=== PATIENT | male | born 1930 | race Caucasian/White ===

== ENCOUNTER 2018-11-01 08:40 | Emergency (ER) | payer MEDICARE ==
[2018-11-01] MEDS ORDERED: ACETAMINOPHEN 325 MG TABLET PO STA (09:58)
--- NOTE | 2018-11-01 10:01 | ED Physician Documentation ---
PD HPI URI - Stated complaint Stated Complaint: CONGESTION/COUGH - Chief complaint Chief Complaint: Heent - History obtained from History obtained from: Patient - History of Present Illness Timing - onset: How many weeks ago (1) Timing details: Still present Associated symptoms: Nasal congestion, Productive cough - Additional information Additional information: The patient is an 88-year-old male who presents with sinus drainage and productive cough of one weeks duration. He denies fever, chest pain or shortn ess of breath, headache, or myalgias. He denies history of similar symptoms this bad in the past. He lives alone. Review of Systems Constitutional: denies: Fever, Myalgias Eyes: denies: Irritation Ears: denies: Tinnitus/ringing Nose: reports: Congestion Throat: denies: Sore throat Cardiac: denies: Chest pain / pressure Respiratory: reports: Cough. denies: Dyspnea GI: denies: Abdominal Pain, Nausea, Vomiting : denies: Dysuria Skin: denies: Rash Musculoskeletal: denies: Back pain Neurologic: denies: Headache PD PAST MEDICAL HISTORY - Past Medical History Past Medical History: Yes Cardiovascular: High cholesterol Endocrine/Autoimmune: None - Past Surgical History Past Surgical History: Yes Ortho: Hip replacement - Present Medications Home Medications: Ambulatory Orders Medication Instructions Recorded Confirmed Benzonatate [Tessalon Perle] 100 - 200 mg PO TID PRN #14 capsule 11/01/18 Pravastatin Sodium [Pravachol] 20 mg PO BID 11/01/18 11/01/18 - Allergies Allergies/Adverse Reactions: Allergies Allergy/AdvReac Type Severity Reaction Status Date / Time No Known Drug Allergies Allergy Verified 11/01/18 08:59 - Living Situation Living Situation: reports: Alone - Social History Does the pt smoke?: No Smoking Status: Never smoker - Immunizations Immunizations are current?: Yes PD ED PE NORMAL - Vitals Vital signs reviewed: Yes (normal) - General General: Alert and oriented X 3, Well developed/nourished - HEENT HEENT: Atraumatic, Moist mucous membranes, Pharynx benign, Other (Hearing aids) - Neck Neck: No JVD - Cardiac Cardiac: RRR, No murmur - Respiratory Respiratory: No respiratory distress, Clear bilaterally, Other (Loose sounding cough.) - Abdomen Abdomen: Soft, Non tender - Back Back: No CVA TTP - Derm Derm: No rash - Extremities Extremities: No edema, No calf tenderness / cord - Neuro Neuro: Alert and oriented X 3, No motor deficit, Normal speech Results - Vitals Vitals: Vital Signs - 24 hr 11/01/18 08:56 Temperature 36.1 C L Heart Rate 59 L Respiratory 18 Rate Blood Pressure 113/61 O2 Saturation 100 Oxygen O2 Source Room air - Labs Labs: Laboratory Tests 11/01/18 10:00 Influenza A (Rapid) Negative Influenza B (Rapid) Negative - Rads (name of study) CXR Radiology: Prelim report reviewed, EMP read contemporaneously, See rad report (A nodular opacity overlying the left base appears new from the prior examination. This is indeterminant for pulmonary nodule, sclerotic osseous density, or potentially a nipple shadow. Consider follow-up frontal radiograph with nipple markers; alternatively, chest CT could be performed for further evaluation. Otherwise no acute cardiopulmonary abnormality seen.) 1-view /CXR Radiology: Prelim report reviewed, EMP read contemporaneously, See rad report (No acute pathology. Findings consistent with emphysema. Nipple markers demonstrate that the left lower lobe lesion is in fact a nipple.) PD MEDICAL DECISION MAKING - ED course Complexity details: reviewed results, re-evaluated patient, considered differential, d/w patient ED course: The patient's presentation is most consistent with viral upper respiratory infection. His clinical presentation does not suggest meningitis, pneumonitis, otitis media, or acute pharyngitis. Influenza swab is negative, and chest x-ray reveals no acute cardiopulmonary abnormality. Treatment in the emergency department included administration of Tylenol 650 mg orally.. I discussed with him the expected course of illness, symptomatic treatment and outpatient follow-up, as well as potentially worrisome signs or symptoms that should prompt reevaluation in the emergency department. Departure - Departure Disposition: 01 Home, Self Care Clinical Impression: Viral URI Condition: Stable Instructions: ED Upper Resp Infec No Abx Tx Follow-Up: Ayan Crandall MD [Primary Care Provider] - Prescriptions: Benzonatate [Tessalon Perle] 100 - 200 mg PO TID PRN #14 capsule PRN Reason: Cough Comments: Your symptoms are most consistent with a viral upper respiratory infection. Antibiotics are not clinically indicated for this type of viral infection. Treatment should be geared toward managing symptoms: Drink plenty of fluids. Use Tylenol or ibuprofen as needed for fever or discomfort. Wash your hands frequently, and cover your cough. Follow up with your primary physician, or return to the emergency department, if not improving within 1-2 weeks. Return to the emergency department if you develop increasing difficulty breathing, or otherwise worsening symptoms.
--- NOTE | 2018-11-01 11:02 | XRAY Report ---
Reason: productive cough Procedure Date: 11/01/2018 Accession Number: [id number] / [id number] Procedure: XR - Chest 2 View X-Ray CPT Code: 37977 FULL RESULT: EXAM: CHEST RADIOGRAPHY EXAM DATE: 11/01/2018 10:34 AM. CLINICAL HISTORY: Productive cough. COMPARISON: Chest radiograph from 05/16/2012. TECHNIQUE: 2 views. FINDINGS: Lungs/Pleura: No focal airspace opacities. There is a 7 mm nodular density overlying the left lung base and also overlying the left posterior ninth rib. This is not definitely seen previously. No pleural effusion or pneumothorax. Mediastinum: Cardiomediastinal silhouette and pulmonary vasculature are within normal limits. Tortuosity of the descending thoracic aorta demonstrated. Other: Multilevel degenerative changes are present in the spine. IMPRESSION: 1. A nodular opacity overlying the left base appears new from the prior examination. This is indeterminate for pulmonary nodule, sclerotic osseous density, or potentially a nipple shadow. Consider follow-up frontal radiograph with nipple markers; alternatively, chest CT could be performed for further evaluation. 2. Otherwise no acute cardiopulmonary abnormality. [facility]
--- NOTE | 2018-11-01 12:12 | XRAY Report ---
Reason: Frontal view with nipple markers Procedure Date: 11/01/2018 Accession Number: [id number] / [id number] Procedure: XR - Chest 1 View X-Ray CPT Code: 18036 FULL RESULT: EXAM: CHEST RADIOGRAPHY EXAM DATE: 11/01/2018 11:16 AM. CLINICAL HISTORY: Follow-up 7-mm nodularity density overlying left lung base. TECHNIQUE: Frontal view with nipple markers. COMPARISON: CHEST 2 VIEW 11/01/2018. TECHNIQUE: 1 view. FINDINGS: Lungs/Pleura: The lungs are overinflated, suggestive of emphysema. There is no consolidation. There are no pleural effusions or pneumothoraces. The left lower lobe lesion of interest is consistent with a nipple. Mediastinum: Within exam limitations, the cardiomediastinal contour is normal. 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 Moderate left glenohumeral osteoarthritis. IMPRESSION: No acute pathology. Findings consistent with emphysema. Nipple markers demonstrate that the left lower lobe lesion was in fact a nipple. [facility]
[2018-11-01 12:37] VITALS: BP 132/75
== END 2018-11-01 12:41 | disposition home or self-care (01) ==
LOC: ED 08:40
DX: J06.9 Acute upper respiratory infection, unspecified (principal)
CPT/HCPCS: 71045; 71046; 87275; 87276; 99283; A9270